=== PATIENT | female | born 1985 | race Caucasian/White ===

== ENCOUNTER 2019-01-14 10:00 | Emergency (ER) | payer MEDICAID, OTHER ==
[~2019-01-14] VITALS: Ht 162.6 cm; Wt 73.5 kg
[2019-01-14 10:11] VITALS: BP 131/48; Ht 162.6 cm; Wt 73.5 kg
== END 2019-01-14 11:59 | disposition home or self-care (01) ==
LOC: ED 10:00
DX: M54.6 Pain in thoracic spine (principal)